=== PATIENT | male | born 1945 | race Caucasian/White ===

== ENCOUNTER 2017-09-05 14:10 | Emergency (ER) | payer MEDICARE, OTHER ==
[~2017-09-05] VITALS: Ht 162.6 cm; Wt 72.1 kg
[~2017-09-05 14:10] MED LIST: BENA10TA2
--- NOTE | 2017-09-05 14:16 | NUR ---
AAOX3, BIB FRIEND C/O RIGHT HAND NUMBNESS, NO FACIAL DROOPING, SPEECH IS CLEAR, BILATERAL STRONG AND EQUAL MANAGER PERSONNEL SELECTION NOTED. AWAITING MD FOR EVAL.
[2017-09-05 14:55] VITALS: BP 148/75
== END 2017-09-05 14:56 | disposition home or self-care (01) ==
LOC: ER 14:13
DX: G62.9 Polyneuropathy, unspecified (principal); I10 Essential (primary) hypertension; F10.10 Alcohol abuse, uncomplicated; F17.200 Nicotine dependence, unspecified, uncomplicated
CPT/HCPCS: 99283; A4606; Z7610

== ENCOUNTER 2018-08-02 11:42 | Emergency (ER) | payer MEDICARE, OTHER ==
[~2018-08-02] VITALS: Ht 167.6 cm; Wt 72.6 kg
[~2018-08-02 11:42] MED LIST changes: -BENA10TA2; +BENA10TA9
[2018-08-02] MEDS ORDERED: ONDANSETRON HCL/PF 4 MG/2 ML VIAL IVP ONE (12:00)
[2018-08-02] MEDS ORDERED: IV NS 0.9% 500 ML BAG IV ONE (12:00)
[2018-08-02] MEDS ORDERED: MORPHINE SULFATE INJ 2 MG/ML DISP.SYRIN IV ONE (12:00)
[2018-08-02 12:10] LABS: BASOPHILS % (AUTO) 0.4 % (0.0-2.0); HEMATOCRIT 37 % (39-51); HEMOGLOBIN 12.7 g/dL (13.5-17.5); LYMPHOCYTES # (AUTO) 0.8 /CMM (0.8-4.8); LYMPHOCYTES % (AUTO) 5.9 % (20.0-44.0); MEAN CORPUSCULAR HGB CONC 34 g/dl (31.0-36.0); MEAN CORPUSCULAR VOLUME 97 fL (80-96); MONOCYTES # (AUTO) 0.9 /CMM (0.1-1.30); NEUTROPHILS # (AUTO) 11.5 /CMM (1.8-8.9); NEUTROPHILS % (AUTO) 86.7 % (43.0-81.0); PLATELET COUNT (AUTO) 247 /CMM (150-450); RED BLOOD CELL COUNT(AUTO) 3.83 MIL/uL (4.5-6.0); WHITE BLOOD COUNT (AUTO) 13.3 K/uL (4.3-11.0)
[2018-08-02 12:18] LABS: CALCIUM, SERUM 8.4 mg/dL (8.5-10.1); CARBON DIOXIDE 28 mmol/L (21-32); CHLORIDE 97 mmol/L (98-107); CREATININE 0.8 mg/dL (0.6-1.3); GLUCOSE 175 mg/dL (74-106); POTASSIUM 3.9 mmol/L (3.5-5.1); SODIUM SERUM 133 mmol/L (136-145); UREA NITROGEN, BLOOD 17 mg/dL (7-18)
[2018-08-02 12:24] LABS: ALANINE AMINOTRANSFERASE 49 U/L (12-78); ALBUMIN 3.7 g/dL (3.4-5.0); ALKALINE PHOSPHATASE 55 U/L (46-116); ASPARTATE AMINOTRANSFERASE 76 U/L (15-37); BILIRUBIN,DIRECT 0.2 mg/dL (0.0-0.2); BILIRUBIN,TOTAL 0.7 mg/dL (0.2-1.0)
[2018-08-02] MEDS ORDERED: ONDANSETRON HCL/PF 4 MG/2 ML VIAL ONE (12:34)
[2018-08-02] MEDS ORDERED: HYDROMORPHONE INJ 2 MG/ML DISP.SYRIN ONE (12:34)
--- NOTE | 2018-08-02 12:40 | NUR ---
BIBRA 878 C/O LEFT HIP PAIN S/P FELL 2 NIGHTS AGO, +SHORTENING. PT AAOX3, VSS. DENIES CP, SOB, DIZZINESS, MEHTA, N/V. PT SEEN & EVAL'D BY DR. SAENZ. 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 MEDICATED FOR PAIN, PT SUSIE WELL. WILL CONT TO MONITOR.
[2018-08-02 12:50] VITALS: BP 141/57
--- NOTE | 2018-08-02 12:52 | NUR ---
MEDICATED FOR LT HIP PAIN 10/10 PER ERMD ORDER, PT SUSIE WELL.
[2018-08-02] MEDS ORDERED: HYDROMORPHONE 1 MG/1 ML DISP.SYRIN IV ONE (13:00)
--- NOTE | 2018-08-02 13:20 | NUR ---
CALLED [facility] DR WHITE WAS PAGED.
[2018-08-02] MEDS ORDERED: HYDROMORPHONE INJ 0.5 MG/0.5 ML SYRINGE IV ONE (13:30)
--- NOTE | 2018-08-02 13:54 | NUR ---
CALLED TRANSPORT ETA IS 60 MINS TRIP NUMBER IS [id number] PER [facility]
--- NOTE | 2018-08-02 13:56 | NUR ---
INSERTED 16FR LEON CATHETER, URINE FLOWED RIGHT AWAY W/O DIFFICULTY. INTACT, NO SIGNS OF BLOOD CLOT NOTED & PT SUSIE WELL.
--- NOTE | 2018-08-02 14:47 | NUR ---
GOT BED AT [facility] ROOM # [id number] CALL [phone] TO GIVE REPORT TRANSPORT AFTER 1630 NEEDS TO GO THROUGH ER
--- NOTE | 2018-08-02 15:02 | NUR ---
REPORT GIVEN TO THOM RODRIGUEZ FOR CONT OF CARE . PT EN ROUTE TO [facility] VIA BLS. PT ASSIGNED ROOM IS [id number]
== END 2018-08-02 15:07 | disposition short-term general hospital (02) ==
LOC: ER 11:48
DX: S72.142A Displaced intertrochanteric fracture of left femur, initial encounter for closed fracture (principal); I10 Essential (primary) hypertension; F17.200 Nicotine dependence, unspecified, uncomplicated; R94.31 Abnormal electrocardiogram [ECG] [EKG]; Z79.899 Other long term (current) drug therapy; W19.XXXA Unspecified fall, initial encounter; Y93.89 Activity, other specified; Y92.89 Other specified places as the place of occurrence of the external cause; Y99.8 Other external cause status
CPT/HCPCS: 36415; 71045-TC; 73502; 80048-TC; 80076-TC; 84484-TC; 85025-TC; 85730-TC; J1170; J2405; J7040